=== PATIENT | female | born 1970 | race Caucasian/White ===

== ENCOUNTER 2017-01-24 08:45 | Emergency (ER) | payer OTHER ==
[2017-01-24 09:00] VITALS: BP 148/91
--- NOTE | 2017-01-24 09:22 | UC ---
Dental HPI - HPI Summary HPI Summary: The patient comes in today for: 1. Left facial pain: Onset: "a couple of days." Palliative/provocative: Nothing makes her pain better or worse. "Just sips of water just makes it worse." Quality: Throbbing, and a sharp ache. Region: Left face Severity: 9/10 Time: Constant. Associated symptoms: Fevers: None. Last dental visit: one year ago. She had an upper left tooth break about a month ago. She has not taken her methotrexate in 3-4 weeks. She has responded to keflex in the past. And she tolerates the medication well. * - History of Current Complaint Chief Complaint: UCDentalProblem Stated Complaint: DENTAL COMPLAINT Time Seen by Provider: 01/24/17 09:04 Hx Obtained From: Patient Hx Last Menstrual Period: current ?: No - Allergies/Home Medications Allergies/Adverse Reactions: Allergies Allergy/AdvReac Type Severity Reaction Status Date / Time Penicillins Allergy Mild Rash Verified 01/24/17 08:50 Sulfa Antibiotics Allergy Unknown Unknown Verified 01/24/17 08:50 Reaction Details Home Medications: Home Medications oxyCODONE TAB* [Roxycodone TAB 5 mg*] 10 mg PO Q4H PRN 01/24/17 [History Confirmed 01/24/17] PMH/Surg Hx/FS Hx/Imm Hx Previously Healthy: No - Lupus, lower back pain, arthralgia. Endocrine History Of: Reports: Thyroid Disease - HYPOTHYROID, Hypothyroidism Denies: Diabetes, Hyperthyroidism, Dyslipidemia Cardiovascular History Of: Denies: Cardiac Disorders, Hypertension, Pacemaker/ICD, Myocardial Infarction , Congestive Heart Failure, Atrial Fibrillation, Deep Vein Thrombosis, Bleeding Disorders Respiratory History Of: Reports: Asthma Denies: COPD, Bronchitis, Pneumonia, Pulmonary Embolism GI/ History Of: Reports: Gastroesophageal Reflux Denies: Ulcer, Gastrointestinal Bleed, Gall Bladder Disease, Kidney Stones, Diverticulitis, Renal Disease, Urosepsis Neurological History Of: Denies: TIA, CVA, Dementia, Seizures, Migraine Psychological History Of: Reports: Anxiety, Depression Denies: Bipolar Disorder, Schizophrenia, Post Traumatic Stress Disorder Cancer History Of: Denies: Lung Cancer, Colorectal Cancer, Breast Cancer, Prostate Cancer, Cervical Cancer Other History Of: Negative For: HIV, Hepatitis B, Hepatitis C, Anticoagulant Therapy - Surgical History Surgical History: None Surgery Procedure, Year, and Place: none - Family History Known Family History: Negative: Cardiac Disease, Hypertension - Social History Occupation: Unemployed Alcohol Use: None Substance Use Type: None Substance Use Comment - Amount & Last Used: oxycodone, fentanyl, alprazalam Smoking Status (MU): Light Every Day Tobacco Smoker Type: Cigarettes Amount Used/How Often: 1ppd Length of Time of Smoking/Using Tobacco: 20 years Have You Smoked in the Last Year: No When Did the Patient Quit Smoking/Using Tobacco: 2011 Household Exposure Type: Cigarettes Review of Systems Constitutional: Negative Skin: Negative Eyes: Negative ENT: Negative Respiratory: Negative Cardiovascular: Negative Gastrointestinal: Negative Genitourinary: Negative Musculoskeletal: Arthralgia, Myalgia All Other Systems Reviewed And Are Negative: Yes Physical Exam Triage Information Reviewed: Yes Appearance: Well-Nourished, Pain Distress - She is not crying, but she has decreased facial expression. Vital Signs: Initial Vital Signs Temp 98.2 F 01/24/17 08:53 Pulse 92 01/24/17 08:53 Resp 20 01/24/17 08:53 BP 148/91 01/24/17 08:53 Pulse Ox 93 01/24/17 08:53 Vital Signs Reviewed: Yes Eyes: Positive: Conjunctiva Clear. Negative: Discharge ENT: Positive: Hearing grossly normal, Other: - Palpation of her swollen cheek revealed no tenderness, but the left upper gum is tender.. Negative: Pharyngeal erythema, Nasal congestion, Nasal drainage, TM bulging, TM dull, TM red, Tonsillar swelling, Tonsillar exudate Dental: Positive: Percussion Tenderness @ - #12, #13 is missing. No pus coming out. Gums are not swollen, but very painful., Gross Decay/Caries @ Neck: Positive: Supple, Nontender, No Lymphadenopathy Respiratory: Positive: Chest non-tender, Lungs clear, No respiratory distress, No accessory muscle use. Negative: Rhonchi, Wheezing Cardiovascular: Positive: RRR, No Murmur Abdomen Description: Positive: Nontender, No Organomegaly, Soft. Negative: Distended, Guarding Musculoskeletal: Positive: Strength Intact, ROM Intact, No Edema Neurological: Positive: Alert, Muscle Tone Normal Psychological: Positive: Age Appropriate Behavior, Consolable Skin: Negative: rashes, breakdown Dental Complaint Course/Dx - Course Course Of Treatment: Patient was told of the diagnosis and treatment options. She wanted to go with cephalexin and ibuprofen. She tolerates the cephalexin which has worked well. And she has not been on methotrexate for at least 3 if not 4 weeks by her report. - Differential Dx/Diagnosis Differential Diagnosis/Dx: Dental Abscess, Dental Caries Provider Diagnoses: Hypertension Discharge - Discharge Plan Condition: Stable Disposition: HOME Patient Education Materials: Dental Caries (ED) Referrals: Pepito Kim MD [Primary Care Provider] - Additional Instructions: Use on of the oral surgeons listed below for an evaluation and treatment as soon as you can.
[2017-01-24] MEDS ORDERED: Ketorolac INJ* 60 MG/2 ML VIAL IM ONE (09:41)
== END 2017-01-24 10:02 | disposition home or self-care (01) ==
LOC: UCEAST 08:45
DX: Z88.3 Allergy status to other anti-infective agents (principal); E03.9 Hypothyroidism, unspecified; J45.909 Unspecified asthma, uncomplicated; F41.9 Anxiety disorder, unspecified; F32.9 Major depressive disorder, single episode, unspecified; K21.9 Gastro-esophageal reflux disease without esophagitis; F17.210 Nicotine dependence, cigarettes, uncomplicated; I10 Essential (primary) hypertension; K02.9 Dental caries, unspecified; Z88.0 Allergy status to penicillin
CPT/HCPCS: 96372; 99212; G0463; J1885

== ENCOUNTER 2017-09-21 09:43 | Emergency (ER) | payer OTHER | END 2017-09-21 11:10 | disposition left against medical advice (07) | LOC: UCEAST 09:43 | DX: K08.89 Other specified disorders of teeth and supporting structures (principal); Z53.21 Procedure and treatment not carried out due to patient leaving prior to being seen by health care provider ==

== ENCOUNTER 2017-09-21 13:03 | Emergency (ER) | payer OTHER ==
[2017-09-21 13:59] VITALS: BP 108/70
--- NOTE | 2017-09-21 16:02 | UC ---
Jose Alfredo Coto Gabriel, scribed for Santi Cortes MD on 09/21/17 at 1424 . Dental HPI - HPI Summary HPI Summary: This patient is a 46 year old F presenting to [facility] with a chief complaint of lower right sided dental pain since 3 days ago that has been getting worse. The patient rates the pain 5/10 in severity. Symptoms alleviated by Advil. Patient reports ear pain and swollen gums. She is going to see a dentist tomorrow and called today and they suggested she come to for antibiotics. - History of Current Complaint Chief Complaint: UCDentalProblem Stated Complaint: DENTAL COMPLAINT Time Seen by Provider: 09/21/17 14:11 Hx Obtained From: Patient Hx Last Menstrual Period: now Onset/Duration: Lasting Days - 3, Still Present Severity: Mild Pain Intensity: 3 Pain Scale Used: 0-10 Numeric Alleviating Factor(s): OTC Meds - Allergies/Home Medications Allergies/Adverse Reactions: Allergies Allergy/AdvReac Type Severity Reaction Status Date / Time Penicillins Allergy Mild Rash Verified 09/21/17 13:59 Sulfa Antibiotics Allergy Unknown Unknown Verified 09/21/17 13:59 Reaction Details Home Medications: Home Medications Buprenorphine HCl-Naloxone HCl [Suboxone 12-3 mg] 1 tab PO DAILY 09/21/17 [ History Confirmed 09/21/17] PMH/Surg Hx/FS Hx/Imm Hx Previously Healthy: No Endocrine History: Hypothyroidism Other Endocrine History: Lupus Other History Of: Negative For: HIV, Hepatitis B, Hepatitis C, Anticoagulant Therapy - Surgical History Surgical History: None Surgery Procedure, Year, and Place: none - Family History Known Family History: Negative: Cardiac Disease, Hypertension - Social History Alcohol Use: None Substance Use Type: Prescribed Substance Use Comment - Amount & Last Used: oxycodone, fentanyl, alprazalam Smoking Status (MU): Light Every Day Tobacco Smoker Type: Cigarettes Amount Used/How Often: 1ppd Length of Time of Smoking/Using Tobacco: 20 years Have You Smoked in the Last Year: No When Did the Patient Quit Smoking/Using Tobacco: 2011 Household Exposure Type: Cigarettes Review of Systems ENT: Dental Pain, Ear Ache, Other - swollen gums All Other Systems Reviewed And Are Negative: Yes Physical Exam Triage Information Reviewed: Yes Appearance: Well-Appearing, No Pain Distress Vital Signs: Initial Vital Signs Temp 97.7 F 09/21/17 13:56 Pulse 83 09/21/17 13:56 Resp 18 09/21/17 13:56 BP 108/70 09/21/17 13:56 Pulse Ox 99 09/21/17 13:56 Vital Signs Reviewed: Yes Eye Exam: Normal ENT Exam: Normal ENT: Positive: TMs normal Dental Exam: Other - Multiple carries, right lower gingival swelling Neck exam: Normal Neck: Positive: Supple, Nontender, No Lymphadenopathy Respiratory Exam: Normal - CTA Respiratory: Positive: Normal breath sounds Cardiovascular Exam: Normal Cardiovascular: Positive: RRR, No Murmur Abdominal Exam: Normal Abdomen Description: Positive: Nontender, Soft Bowel Sounds: Positive: Present Musculoskeletal Exam: Normal Musculoskeletal: Positive: Strength Intact, ROM Intact Neurological Exam: Normal - sensory/motor intact, A&O x3 Psychological Exam: Normal - affect/mood appropriate Skin Exam: Normal - warm, color reflects adequate perfusion, dry Dental Complaint Course/Dx - Differential Dx/Diagnosis Provider Diagnoses: DENTAL INFECTION/PAIN Discharge - Discharge Plan Condition: Stable Disposition: HOME Prescriptions: Acetaminophen TAB* [Tylenol TAB*] 650 mg PO Q4H PRN #20 tab PRN Reason: Pain Clindamycin Cap(NF) [Clindamycin Cap 300 mg Cap(NF)] 300 mg PO Q6H #40 cap Ibuprofen TAB* [Motrin TAB* 600 MG] 600 mg PO Q6H PRN #30 tab PRN Reason: Pain Magic Mouth Was-ALFA/MAAL/LIDO* 5 ml SWISH SPIT QID #60 ml Magic Mouth Was-ALFA/MAAL/LIDO* 5 ml SWISH SWAL QID #60 ml Patient Education Materials: Toothache (ED) Referrals: Tania Smith NP [Primary Care Provider] - Additional Instructions: FOLLOW UP WITH YOUR DENTIST. GET RECHECKED FOR ANY WORSENING OF YOUR CONDITION OR QUESTIONS OR CONCERNS. The documentation as recorded by the Jose Alfredo calero Gabriel accurately reflects the service I personally performed and the decisions made by , Santi Cortes MD.
[2017-09-21] MEDS ORDERED: Magic Mouth Was-BEN/MAAL/LIDO SWISH SPIT SCH (17:00)
== END 2017-09-21 14:46 | disposition home or self-care (01) ==
LOC: UCEAST 13:03
DX: K04.7 Periapical abscess without sinus (principal); F17.210 Nicotine dependence, cigarettes, uncomplicated; E03.9 Hypothyroidism, unspecified; Z88.0 Allergy status to penicillin; Z88.2 Allergy status to sulfonamides
CPT/HCPCS: 99212; G0463

== ENCOUNTER 2018-10-02 21:27 | Emergency (ER) | payer OTHER ==
[2018-10-02 21:33] VITALS: BP 138/77
[2018-10-02] MEDS ORDERED: Cephalexin CAP* 500 MG PO ONE (21:51)
--- NOTE | 2018-10-02 21:51 | UC ---
Throat Pain/Nasal Gerardo HPI - HPI Summary HPI Summary: History of lupus, taking MTX, with frequent URI's For the past 3 days, has had fever, sore throat and sore ears, but no cough. States had labs drawn about 6 weeks ago while living in [place] and is not aware of a decreased white count. Last [facility] record are 03/2018. Earlier this week, had diarrhea, but no vomiting or abdominal pain. - History of Current Complaint Chief Complaint: UCRespiratory Stated Complaint: SORE THROAT Time Seen by Provider: 10/02/18 21:42 Hx Obtained From: Patient Hx Last Menstrual Period: 1 MONTH AGO Onset/Duration: Gradual Onset, Lasting Days - 3 Pain Intensity: 4 Cough: None Associated Signs & Symptoms: Positive: Dysphagia, Hoarseness - Epiglottits Risk Factors Epiglottis Risk Factors: Negative - Allergies/Home Medications Allergies/Adverse Reactions: Allergies Allergy/AdvReac Type Severity Reaction Status Date / Time Sulfa (Sulfonamide Allergy Unknown Unknown Verified 10/02/18 21:34 Antibiotics) Reaction Details Penicillins Allergy Rash Verified 10/02/18 21:34 Home Medications: Home Medications DULoxetine DR CAP* [Cymbalta CAP*] 10/02/18 [History] Ibuprofen TAB* [Advil TAB*] 800 mg PO PRN 10/02/18 [History] Methotrexate TAB* 10/02/18 [History Confirmed 10/02/18] clonazePAM TAB(*) [Klonopin TAB(*)] PRN 10/02/18 [History Confirmed 10/02/18] PMH/Surg Hx/FS Hx/Imm Hx - Additional Past Medical History Additional PMH: Lupus and fibromyalgia Other History Of: Negative For: HIV, Hepatitis B, Hepatitis C, Anticoagulant Therapy - Surgical History Surgical History: None Surgery Procedure, Year, and Place: none - Family History Known Family History: Positive: None Negative: Cardiac Disease, Hypertension - Social History Occupation: Unemployed - seeking disability Alcohol Use: None Substance Use Type: None Substance Use Comment - Amount & Last Used: oxycodone, fentanyl, alprazalam Smoking Status (MU): Current Some Day Smoker Type: Cigarettes Amount Used/How Often: 1ppd Length of Time of Smoking/Using Tobacco: 20 years Have You Smoked in the Last Year: No When Did the Patient Quit Smoking/Using Tobacco: 2011 Household Exposure Type: Cigarettes Review of Systems All Other Systems Reviewed And Are Negative: Yes Constitutional: Positive: Fever, Fatigue Skin: Positive: Negative Eyes: Positive: Negative ENT: Positive: Sore Throat, Ear Ache Respiratory: Positive: Negative Cardiovascular: Positive: Negative Gastrointestinal: Positive: Negative Genitourinary: Positive: Negative Motor: Positive: Negative Neurovascular: Positive: Negative Musculoskeletal: Positive: Myalgia Neurological: Positive: Negative Psychological: Positive: Negative Is Patient Immunocompromised?: Yes Physical Exam Triage Information Reviewed: Yes Appearance: Ill-Appearing - looks mildly unwell, Pain Distress - mild Vital Signs: Initial Vital Signs Temp 98.3 F 10/02/18 21:29 Pulse 96 10/02/18 21:29 Resp 16 10/02/18 21:29 BP 138/77 10/02/18 21:29 Pulse Ox 98 10/02/18 21:29 ENT: Positive: TM dull - bilaterally, Tonsillar swelling, Tonsillar exudate - bilateral tonsillar swelling, erythema and exudate, almost to uvula Dental Exam: Normal Neck: Positive: Supple, Nontender, No Lymphadenopathy Respiratory: Positive: Lungs clear, Normal breath sounds. Negative: Stridor, Wheezing Cardiovascular: Positive: RRR, No Murmur Abdomen Description: Positive: Nontender, No Organomegaly, Soft Neurological Exam: Normal Neurological: Positive: Alert, Muscle Tone Normal Psychological Exam: Normal Throat Pain/Nasal Course/Dx - Course Course Of Treatment: cehalexin for exudative tonsillitis, with hx of methotrexate use. Labs obtained because of no recent available monitoring of mtx. - Differential Dx/Diagnosis Differential Diagnosis/HQI/PQRI: Laryngitis, Peritonsillar Abscess, Pharyngitis , Tonsillitis, URI Provider Diagnosis: Tonsillitis Discharge - Sign-Out/Discharge Documenting (check all that apply): Patient Departure All imaging exams completed and their final reports reviewed: No Studies - Discharge Plan Condition: Critical Disposition: HOME Prescriptions: Cephalexin CAP* [Keflex 500 CAP*] 500 mg PO TID #21 cap Patient Education Materials: Tonsillitis (ED) Referrals: Tania Smith NP [Primary Care Provider] - Additional Instructions: continue use of cephalexin for treatment of tonsillitis. Please contact Jaiolga Pizanok for instructions on use of methotrexate during treatment, and ensure that you have a follow up visit with her. You can use warm water and salt gargles to relieve tonsillar pain, in addition to ibuprofen 600mg every 6 hours as needed. - Billing Disposition and Condition Condition: CRITICAL Disposition: Home
[2018-10-03 13:44] LABS: ABS Basophils 0.1 10^3/ul (0-0.2); ABS Eosinophils 0.3 10^3/ul (0-0.6); ABS Lymphocytes 2.8 10^3/ul (1.0-4.8); ABS Monocytes 0.7 10^3/ul (0-0.8); ABS Neutrophils 10.4 10^3/ul (1.5-7.7); ABS Nucleated RBC 0 10^3/ul; Eosinophil % 1.8 %; Hematocrit 37 % (35-47); Hemoglobin 12.4 g/dl (12.0-16.0); Lymphocyte % 19.7 %; Mean Corpuscular HGB Conc 33 g/dl (31-36); Mean Corpuscular Hemoglobin 30 pg (27-31); Mean Corpuscular Volume 91 fL (80-97); Mean Platelet Volume 8.2 fL (7.4-10.4); Nucleated Red Blood Cells % 0; Platelet Count 277 10^3/ul (150-450); Red Cell Distribution Width 13 % (10.5-15); White Blood Count 14.3 10^3/ul (3.5-10.8)
--- NOTE | 2018-10-03 16:09 | UC ---
- Progress Note Progress Note: 10/03/2018 Pt Dx w/ Tonsillitis and Rx Keflex PO WBC:14.3 elevated, Neutrophils 10.4 elevated. K;3.3 mildly low, Glucose:126 elevated. However pt was not fasting BUN/crea: 21.8 elevated Please call back PT and see if she is feeling better w/ the antibiotic Please advised her she needs to f/u w/ her PCP as soon as possible if symptoms are not improving for further evaluation and treatment Prabha Arteaga PA-C Course/Dx - Diagnoses Provider Diagnoses: Tonsillitis Discharge - Sign-Out/Discharge Documenting (check all that apply): Patient Departure - D/C home All imaging exams completed and their final reports reviewed: No Studies - Discharge Plan Condition: Critical Disposition: HOME Prescriptions: Cephalexin CAP* [Keflex 500 CAP*] 500 mg PO TID #21 cap Patient Education Materials: Tonsillitis (ED) Referrals: Tania Smith NP [Primary Care Provider] - Additional Instructions: continue use of cephalexin for treatment of tonsillitis. Please contact Davey Samano for instructions on use of methotrexate during treatment, and ensure that you have a follow up visit with her. You can use warm water and salt gargles to relieve tonsillar pain, in addition to ibuprofen 600mg every 6 hours as needed. - Billing Disposition and Condition Condition: CRITICAL Disposition: Home
== END 2018-10-02 22:23 | disposition home or self-care (01) ==
LOC: UCEAST 21:27
DX: J03.90 Acute tonsillitis, unspecified (principal); M32.9 Systemic lupus erythematosus, unspecified; M79.7 Fibromyalgia; F17.210 Nicotine dependence, cigarettes, uncomplicated; Z88.0 Allergy status to penicillin; Z88.2 Allergy status to sulfonamides
CPT/HCPCS: 36415; 80053; 85025; 86140; 87651; 99212; A9270-GY; G0463

== ENCOUNTER 2018-10-17 13:33 | Emergency (ER) | payer OTHER ==
[2018-10-17 14:05] VITALS: BP 140/67
--- NOTE | 2018-10-17 14:16 | UC ---
Ear Complaint HPI - HPI Summary HPI Summary: 48-year-old female presents with 5 day history of right ear pain after recent visit to an indoor water park. States she felt like she got some water in the ear while in the wave [place]. She has noted increasing pain to the right ear with some diminished hearing. Denies fever, chills, ear drainage, nasal congestion, sore throat, or cough. - History of Current Complaint Chief Complaint: UCEar Stated Complaint: EAR COMPLAINT Time Seen by Provider: 10/17/18 14:11 Hx Obtained From: Patient Hx Last Menstrual Period: irregular period - a few months ago Pain Intensity: 5 - Allergies/Home Medications Allergies/Adverse Reactions: Allergies Allergy/AdvReac Type Severity Reaction Status Date / Time Penicillins Allergy Rash Verified 10/17/18 14:06 Sulfa (Sulfonamide AdvReac Unknown dizziness, Verified 10/17/18 14:06 Antibiotics) fainting cephalexin [From Keflex] AdvReac vomiting, Verified 10/17/18 14:06 diarrhea Home Medications: Home Medications Hydrochlorothiazide TAB* [Hydrodiuril TAB*] 25 - 50 mg PO DAILY 10/17/18 [ History Confirmed 10/17/18] PMH/Surg Hx/FS Hx/Imm Hx - Additional Past Medical History Additional PMH: SLE Endocrine History: Hypothyroidism Cardiovascular History: Hypertension GI/ History: Gastroesophageal Reflux Other History Of: Negative For: HIV, Hepatitis B, Hepatitis C, Anticoagulant Therapy - Surgical History Surgical History: None Surgery Procedure, Year, and Place: none - Family History Known Family History: Positive: None Negative: Cardiac Disease, Hypertension - Social History Occupation: Unemployed Lives: With Family Alcohol Use: Rare Substance Use Type: None Substance Use Comment - Amount & Last Used: oxycodone, fentanyl, alprazalam Smoking Status (MU): Former Smoker Type: Cigarettes Amount Used/How Often: 1ppd Length of Time of Smoking/Using Tobacco: 20 years Have You Smoked in the Last Year: No When Did the Patient Quit Smoking/Using Tobacco: 2011 Household Exposure Type: Cigarettes Review of Systems All Other Systems Reviewed And Are Negative: Yes Constitutional: Negative: Fever, Chills Skin: Negative: Rash Eyes: Negative: Drainage, Eye Redness ENT: Positive: Ear Ache. Negative: Sore Throat, Nasal Discharge, Sinus Congestion, Sinus Pain/Tenderness Respiratory: Negative: Cough Cardiovascular: Positive: Negative Gastrointestinal: Positive: Negative Genitourinary: Positive: Negative Is Patient Immunocompromised?: No Physical Exam - Summary Physical Exam Summary: GENERAL APPEARANCE: Well developed, obese, alert and cooperative, and appears to be in no acute distress. EYES: Conjunctiva clear. No drainage. Vision is grossly intact. EARS: Right external auditory canal erythematous and mildly edematous. Left external auditory canal gabe. Bilateral tympanic membranes clear, hearing grossly intact. NOSE: No nasal congestion or discharge. THROAT: Oral cavity and pharynx normal. No inflammation, swelling, exudate, or lesions. Teeth and gingiva in good general condition. NECK: Neck supple, non-tender without lymphadenopathy. CARDIAC: Normal S1 and S2. No S3, S4 or murmurs. Rhythm is regular. There is no peripheral edema, cyanosis or pallor. Extremities are warm and well perfused. Capillary refill is less than 2 seconds. LUNGS: Clear to auscultation and percussion without rales, rhonchi, wheezing or diminished breath sounds. ABDOMEN: Positive bowel sounds. Soft, nondistended, nontender. No guarding or rebound. No masses or hepatosplenomegally. MUSKULOSKELETAL: ROM intact to all extremities. No joint erythema or tenderness. Normal muscular development. Normal gait. SKIN: Skin normal color, texture and turgor with no lesions or eruptions. Triage Information Reviewed: Yes Vital Signs: Initial Vital Signs Temp 97.9 F 10/17/18 14:01 Pulse 88 10/17/18 14:01 Resp 18 10/17/18 14:01 BP 140/67 10/17/18 14:01 Pulse Ox 98 10/17/18 14:01 Vital Signs Reviewed: Yes Ear Complaint Course/Dx - Course Course Of Treatment: 48-year-old female presents with 5 day history of right ear pain after recent visit to an indoor water park. States she felt like she got some water in the ear while in the wave pool. She has noted increasing pain to the right ear with some diminished hearing. Denies fever, chills, ear drainage, nasal congestion, sore throat, or cough. Afebrile. Vital signs stable. Exam revealed erythema and mild edema of the right external auditory canal. Bilateral TMs were intact, opaque, with good cone of light. Will treat for a right otitis externa with ofloxacin otic 10 drops into the affected ear once daily for 7 days. She is to follow-up with her primary care provider in 5 days if symptoms do not improve. Warning symptoms were reviewed with the patient, she verbalizes understanding, and agrees with plan of care. - Differential Dx/Diagnosis Differential Diagnosis/HQI/PQRI: Cerumen Impaction, Otitis Externa, Otitis Media , Perforated TM, URI Provider Diagnosis: Right otitis externa Discharge - Sign-Out/Discharge Documenting (check all that apply): Patient Departure All imaging exams completed and their final reports reviewed: No Studies - Discharge Plan Condition: Stable Disposition: HOME Prescriptions: Ofloxacin 0.3% (Ear Drop)* [Floxin 0.3% OTIC.SADIE (Ear Drop)] 10 drop RIGHT EAR DAILY #1 btl Patient Education Materials: Otitis Externa (ED) Referrals: Tania Smith NP [Primary Care Provider] - 5 Days (If symptoms persist.) Additional Instructions: Start ofloxacin ear drops. Instill 10 drops into the affected ear once a day for 10 days. Follow up with your primary care provider in 5 days if no improvement in symptoms. Seek immediate medical attention in the emergency room if you develop fever greater than 100.5 F, have worsening pain, drainage or bleeding from the ear, or any worsening of symptoms. - Billing Disposition and Condition Condition: STABLE Disposition: Home
== END 2018-10-17 14:30 | disposition home or self-care (01) ==
LOC: UCEAST 13:33
DX: H60.91 Unspecified otitis externa, right ear (principal); I10 Essential (primary) hypertension; Z88.0 Allergy status to penicillin; Z88.1 Allergy status to other antibiotic agents; Z88.2 Allergy status to sulfonamides; Z79.899 Other long term (current) drug therapy; Z87.891 Personal history of nicotine dependence
CPT/HCPCS: 99212; G0463

== ENCOUNTER 2019-04-23 16:42 | Emergency (ER) | payer SELFPAY ==
--- NOTE | 2019-04-23 17:14 | ED ---
GI/ HPI - HPI Summary HPI Summary: This pt is a 48 y/o female presenting to [facility] via EMS from [facility] for right flank pain x3 days. Pt reports her pain has been worsening since then. She describes a constant and waxing and waning pain. Associated symptoms of nausea and decreased urine output despite drinking a lot of fluids. Denies vomiting, fever. Pt states there are no alleviating factors. Pt went to Urgent Care where she provided a urine sample that showed hematuria. PMHx includes kidney infections and kidney stones. - History of Current Complaint Chief Complaint: EDFlankPain Time Seen by Provider: 04/23/19 17:05 Stated Complaint: KIDNEY STONES PER EMS Hx Obtained From: Patient Hx Last Menstrual Period: 2.5 months ago Onset/Duration: Started Days Ago - 3, Atraumatic, Still Present Timing: Lasting Days - 3 Current Severity: Moderate Pain Intensity: 8 Location of Pain: Flank - right Associated Signs and Symptoms: Positive: Nausea, Hematuria, Flank Pain - right, Other: - POSITIVE: decreased urine output. Negative: Vomiting, Fever, Chills Aggravating Factor(s): Nothing Alleviating Factor(s): Nothing - Allergy/Home Medications Allergies/Adverse Reactions: Allergies Allergy/AdvReac Type Severity Reaction Status Date / Time Penicillins Allergy Rash Verified 04/23/19 16:59 Sulfa (Sulfonamide AdvReac Unknown dizziness, Verified 04/23/19 16:59 Antibiotics) fainting cephalexin [From Keflex] AdvReac vomiting, Verified 04/23/19 16:59 diarrhea PMH/Surg Hx/FS Hx/Imm Hx Endocrine/Hematology History: Reports: Hx Systemic Lupus Erythematosus, Hx Thyroid Disease - HYPOTHYROID Denies: Hx Anticoagulant Therapy, Hx Diabetes Cardiovascular History: Reports: Hx Hypertension Denies: Hx Congestive Heart Failure, Hx Deep Vein Thrombosis, Hx Myocardial Infarction, Hx Pacemaker/ICD Respiratory History: Reports: Hx Asthma Denies: Hx Chronic Obstructive Pulmonary Disease (COPD), Hx Lung Cancer, Hx Pneumonia, Hx Pulmonary Embolism GI History: Denies: Hx Gall Bladder Disease, Hx Gastrointestinal Bleed, Hx Ulcer, Hx Urosepsis History: Denies: Hx Kidney Stones, Hx Renal Disease Musculoskeletal History: Reports: Hx Arthritis, Hx Back Problems Denies: Hx Rheumatoid Arthritis - ?, CHECKING TO SEE Sensory History: Reports: Hx Contacts or Glasses Denies: Hx Hearing Aid Opthamlomology History: Reports: Hx Contacts or Glasses Neurological History: Reports: Other Neuro Impairments/Disorders - PAIN CLINIC PATIENT Denies: Hx Dementia, Hx Migraine, Hx Seizures, Hx Transient Ischemic Attacks (TIA) Psychiatric History: Reports: Hx Anxiety, Hx Depression Denies: Hx Panic Disorder, Hx Schizophrenia, Hx Bipolar Disorder - Surgical History Surgery Procedure, Year, and Place: none Infectious Disease History: No Infectious Disease History: Denies: Hx Clostridium Difficile, Hx Hepatitis, Hx Human Immunodeficiency Virus (HIV), Hx of Known/Suspected MRSA, Hx Shingles, Hx Tuberculosis, Hx Known/ Suspected VRE, Hx Known/Suspected VRSA, History Other Infectious Disease, Traveled Outside the [place] in Last 30 Days - Family History Known Family History: Negative: Cardiac Disease, Hypertension - Social History Alcohol Use: None Substance Use Type: Reports: None Substance Use Comment - Amount & Last Used: oxycodone, fentanyl, alprazalam Smoking Status (MU): Former Smoker Type: Cigarettes Amount Used/How Often: 1ppd Length of Time of Smoking/Using Tobacco: 20 years Have You Smoked in the Last Year: No Review of Systems Negative: Fever, Chills Positive: Nausea. Negative: Vomiting Genitourinary: Other - POSITIVE: decreased urine output Positive: flank pain - right, hematuria All Other Systems Reviewed And Are Negative: Yes Physical Exam - Summary Physical Exam Summary: Appearance: The patient is well-nourished in no acute distress and in no acute pain. Skin: The skin is warm and dry and skin color reflects adequate perfusion. HEENT: The head is normocephalic and atraumatic. The pupils are equal and reactive. The conjunctivae are clear and without drainage. Nares are patent and without drainage. Mouth reveals moist mucous membranes and the throat is without erythema and exudate. The external ears are intact. The ear canals are patent and without drainage. The tympanic membranes are intact. Neck: the neck is supple with full range of motion and non-tender. There are no carotid bruits. There is no neck vein distension. Respiratory: Chest is non-tender. Lungs are clear to auscultation and breath sounds are symmetrical and equal. Cardiovascular: Heart is regular rate and rhythm. There is no murmur or rub auscultated. There is no peripheral edema and pulses are symmetrical and equal. Abdomen: The abdomen is soft and non-tender. There are normal bowel sounds heard in all four quadrants and there is no organomegaly palpated. Musculoskeletal: There is no back tenderness noted. Extremities are non-tender with full range of motion. There is good capillary refill. There is no peripheral edema or calf tenderness elicited. Neurological: Patient is alert and oriented to person, place and time. The patient has symmetrical motor strength in all four extremities. Psychiatric: The patient has an appropriate affect and does not exhibit any anxiety or depression. Triage Information Reviewed: Yes Vital Signs On Initial Exam: Initial Vitals Temp Pulse Resp BP Pulse Ox 98.6 F 64 18 124/96 96 04/23/19 16:45 04/23/19 16:45 04/23/19 16:45 04/23/19 16:45 04/23/19 16:45 Vital Signs Reviewed: Yes Diagnostics - Vital Signs Vital Signs Temp Pulse Resp BP Pulse Ox 04/23/19 16:45 98.6 F 64 18 124/96 96 - Laboratory Result Diagrams: 04/23/19 17:30 04/23/19 17:30 Lab Statement: Any lab studies that have been ordered have been reviewed, and results considered in the medical decision making process. - CT CT Abdomen/Pelvis CT Interpretation Completed By: Radiologist Summary of CT Findings: IMPRESSION: 1. No renal calculi or other CT apparent acute abnormalities that would account for the patient's current clinical presentation. 2. Chronic and degenerative changes noted in the body the report. Dr. Last has reviewed this report. GIGU Course/Dx - Course Course Of Treatment: Ms. Christensen presented with right flank pain and dysuria for about 3 days. She has a history of frequent UTIs as well as kidney stones. She was nontoxic in appearance with stable vitals and her exam was unremarkable. Labs were okay including a urinalysis which was unremarkable. CT abdomen and pelvis revealed no sign of ureterolithiasis. I'm not sure the etiology of her pain but she was improved at discharge and I recommended close follow-up. - Diagnoses Provider Diagnoses: Flank pain Discharge - Sign-Out/Discharge Documenting (check all that apply): Patient Departure - Discharge home Patient Received Moderate/Deep Sedation with Procedure: No - Discharge Plan Condition: Stable Disposition: HOME Patient Education Materials: Flank Pain (ED) Referrals: Tania Smith NP [Primary Care Provider] - Additional Instructions: Follow up with your primary care provider in 2-3 days. RETURN TO THE ED FOR ANY WORSENING OR NEW SYMPTOMS. - Billing Disposition and Condition Condition: STABLE Disposition: Home - Attestation Statements Document Initiated by Kang: Yes Documenting Scribe: Liv Benjamin Provider For Whom Kang is Documenting (Include Credential): Leoncio Last MD Scribe Attestation: Liv Coto, scribed for Leoncio Last MD on 04/24/19 at 1322. Scribe Documentation Reviewed: Yes Provider Attestation: The documentation as recorded by the Liv calero accurately reflects the service I personally performed and the decisions made by me, Leoncio Last MD Status of Scribe Document: Viewed
[2019-04-23 17:38] LABS: ABS Basophils 0.1 10^3/ul (0-0.2); ABS Eosinophils 0.2 10^3/ul (0-0.6); ABS Monocytes 0.5 10^3/ul (0-0.8); ABS Neutrophils 5.6 10^3/ul (1.5-7.7); Hematocrit 41 % (35-47); Lymphocyte % 31.7 %; Mean Corpuscular HGB Conc 34 g/dL (31-36); Mean Corpuscular Hemoglobin 30 pg (27-31); Mean Corpuscular Volume 87 fL (80-97); Mean Platelet Volume 8.6 fL (7.4-10.4); Platelet Count 242 10^3/uL (150-450); Red Blood Count 4.71 10^6 /uL (3.70-4.87); Red Cell Distribution Width 13 % (10-15); White Blood Count 9.4 10^3/uL (3.5-10.8)
[2019-04-23] MEDS ORDERED: Ondansetron INJ* 2 MG/ML VIAL IV ONE (17:52)
[2019-04-23] MEDS ORDERED: Ketorolac INJ* 30 MG/ML 1 ML VIAL IV PUSH ONE (17:52)
[2019-04-23] MEDS ORDERED: HYDROmorphone INJ1* 1 MG/ML SYRINGE IV SLOW PU ONE (17:52)
[2019-04-23] MEDS ORDERED: NS 0.9% 1000 ML** 1,000 ML IV ONE (17:52)
[2019-04-23 17:55] LABS: ALT 12 U/L (7-52); AST 16 U/L (13-39); Albumin 4.1 g/dL (3.2-5.2); Albumin/Globulin Ratio 1.2 (1-3); Alkaline Phosphatase 84 U/L (34-104); Anion Gap 6 mmol/L (2-11); Blood Urea Nitrogen 15 mg/dL (6-24); C Reactive Protein 10.43 mg/L (<8.01); CO2 Carbon Dioxide 29 mmol/L (22-32); Calcium 9.2 mg/dL (8.6-10.3); Chloride 102 mmol/L (101-111); EGFR African American 100.7 (>60); EGFR Non-African American 83.2 (>60); Globulin 3.3 g/dL (2-4); Glucose 86 mg/dL (70-100); Potassium 4.2 mmol/L (3.5-5.0); Sodium 137 mmol/L (135-145); Total Protein 7.4 g/dL (6.4-8.9)
[2019-04-23 18:01] LABS: HCG Pregnancy 2.43 mIU/mL
[2019-04-23 19:17] LABS: Urine Appearance Cloudy; Urine Bacteria Absent (Absent); Urine Bilirubin Negative (Negative); Urine Blood 1+ (Negative); Urine Color Yellow; Urine Glucose Negative (Negative); Urine Ketones Negative (Negative); Urine Nitrite Negative (Negative); Urine Protein Negative (Negative); Urine Red Blood Cell Trace(0-2/hpf) (Absent); Urine Specific Gravity 1.013 (1.010-1.030); Urine Squamous Epithelial Cell Present (Absent); Urine Urobilinogen Negative (Negative); Urine White Blood Cell Trace(0-5/hpf) (Absent)
[2019-04-23 19:34] VITALS: BP 142/92
== END 2019-04-23 20:08 | disposition home or self-care (01) ==
LOC: ED 16:42
DX: R10.31 Right lower quadrant pain (principal); Z88.1 Allergy status to other antibiotic agents; Z88.0 Allergy status to penicillin; Z88.2 Allergy status to sulfonamides; I10 Essential (primary) hypertension; M32.9 Systemic lupus erythematosus, unspecified; E03.9 Hypothyroidism, unspecified; Z87.891 Personal history of nicotine dependence
CPT/HCPCS: 36415; 74176; 80053; 81003; 81015; 83605; 83690; 84702; 85025; 86140; 87086; 96361; 96374; 96375; 99282; J1170; J1885; J2405

== ENCOUNTER 2019-12-12 20:48 | Emergency (ER) | payer OTHER ==
[2019-12-12 21:05] VITALS: BP 119/65
[2019-12-12 21:18] LABS: Influenza A Molecular POSITIVE (Negative)
[2019-12-12] MEDS ORDERED: DOXYcycline CAP(*) 100 MG PO ONE (21:23)
[2019-12-12] MEDS ORDERED: Oseltamivir CAP* 75 MG CAP PO ONE (21:23)
--- NOTE | 2019-12-12 21:25 | UC ---
FLU HPI - HPI Summary HPI Summary: 49-year-old woman comes in with a chief complaint of influenza-like symptoms. Patient's been sick for about 2 weeks. 2 weeks ago she had influenza-like symptoms. She started to get better however, about 3 days ago started feeling very sick again with fevers chills and body aches sore throat cough chest congestion. Throat hurts worse on the left. - History of Current Complaint Chief Complaint: UCGeneralIllness Stated Complaint: SORE THROAT Time Seen by Provider: 12/12/19 20:50 Hx Last Menstrual Period: 2.5 months ago Pain Intensity: 0 - Allergy/Home Medications Allergies/Adverse Reactions: Allergies Allergy/AdvReac Type Severity Reaction Status Date / Time Penicillins Allergy Rash Verified 12/12/19 20:55 Sulfa (Sulfonamide AdvReac Unknown dizziness, Verified 12/12/19 20:55 Antibiotics) fainting cephalexin [From Keflex] AdvReac vomiting, Verified 12/12/19 20:55 diarrhea Home Medications: Home Medications Folic Acid TAB* [Folvite TAB*] 1 mg PO DAILY 10/06/13 [History Confirmed ] Plaquenil TAB* 200 mg PO BID 04/03/14 [History Confirmed 12/12/19] Levothyroxine Sodium [Levothyroxine] 100 mcg PO 0800 07/06/14 [History Confirmed 12/12/19] Gabapentin CAP(*) [Neurontin 300 CAP(*)] 300 mg PO TID 01/23/15 [History Confirmed 12/12/19] Albuterol HFA INHALER* [Ventolin HFA Inhaler*] 1 - 2 puff INH Q6H PRN #1 mdi [Rx Confirmed 12/12/19] Buprenorphine HCl/Naloxone HCl [Suboxone 12-3 mg] 1 tab PO DAILY 09/21/17 [ History Confirmed 12/12/19] DULoxetine DR CAP* [Cymbalta CAP*] 20 mg PO DAILY 10/02/18 [History Confirmed ] clonazePAM TAB(*) [Klonopin TAB(*)] 1 mg PO TID 10/02/18 [History Confirmed ] Hydrochlorothiazide TAB* [Hydrodiuril TAB*] 25 - 50 mg PO DAILY 12/30/18 [ History Confirmed 12/12/19] DOXYcycline CAP(*) [DOXYcycline 100MG CAP(*)] 100 mg PO BID #19 cap 12/12/19 [Rx ] Oseltamivir CAP* [Tamiflu CAP*] 75 mg PO BID #9 cap 12/12/19 [Rx] PMH/Surg Hx/FS Hx/Imm Hx Previously Healthy: Yes - lupus, on Plaquenil Endocrine History: Hypothyroidism Respiratory History: Asthma Other History Of: Negative For: HIV, Hepatitis B, Hepatitis C, Anticoagulant Therapy - Surgical History Surgical History: None Surgery Procedure, Year, and Place: none - Family History Known Family History: Positive: None Negative: Cardiac Disease, Hypertension - Social History Alcohol Use: None Substance Use Type: None Substance Use Comment - Amount & Last Used: oxycodone, fentanyl, alprazalam Smoking Status (MU): Former Smoker Type: Cigarettes Amount Used/How Often: 1ppd Length of Time of Smoking/Using Tobacco: 20 years Have You Smoked in the Last Year: No When Did the Patient Quit Smoking/Using Tobacco: 2011 Household Exposure Type: Cigarettes Review of Systems All Other Systems Reviewed And Are Negative: Yes Constitutional: Positive: Fever, Other - see hpi Skin: Positive: Negative Eyes: Positive: Negative ENT: Positive: Sore Throat, Nasal Discharge Respiratory: Positive: Cough Cardiovascular: Positive: Negative Gastrointestinal: Positive: Negative Motor: Positive: Negative Neurovascular: Positive: Negative Musculoskeletal: Positive: Myalgia Neurological/Mental Status: Positive: Headache Psychological: Positive: Negative Is Patient Immunocompromised?: No Physical Exam Triage Information Reviewed: Yes Appearance: No Pain Distress, Well-Nourished, Ill-Appearing - mild Vital Signs: Initial Vital Signs Temp 99.1 F 12/12/19 20:58 Pulse 84 12/12/19 20:58 Resp 20 12/12/19 20:58 BP 119/65 12/12/19 20:58 Pulse Ox 98 12/12/19 20:58 Vital Signs Reviewed: Yes Eye Exam: Normal Eyes: Positive: Conjunctiva Clear ENT: Positive: Pharyngeal erythema, Nasal congestion, Nasal drainage, Tonsillar swelling - left, Uvula midline - Oropharynx is open left tonsil is larger than the right tonsil. There is erythema. Voice is normal. Neck: Positive: Supple Respiratory: Positive: Lungs clear, Normal breath sounds, No respiratory distress Cardiovascular: Positive: RRR Musculoskeletal: Positive: Strength Intact, ROM Intact Neurological: Positive: Alert, Muscle Tone Normal Psychological: Positive: Age Appropriate Behavior Skin Exam: Normal Flu Course/Dx - Course Course Of Treatment: Because the patient's been having symptoms for 2 weeks and her left tonsil is larger than the right we will treat with antibiotics. She is positive for influenza A. It's unsure when she contracted influenza A. Discussed Tamiflu and its efficacy. Patient prefers to be an Tamiflu at this time. Patient will get reevaluated if not improving or worse. - Differential Dx/Diagnosis Provider Diagnosis: Influenza, Tonsillitis Discharge ED - Sign-Out/Discharge Documenting (check all that apply): Patient Departure All imaging exams completed and their final reports reviewed: No Studies - Discharge Plan Condition: Stable Disposition: HOME Prescriptions: DOXYcycline CAP(*) [DOXYcycline 100MG CAP(*)] 100 mg PO BID #19 cap Oseltamivir CAP* [Tamiflu CAP*] 75 mg PO BID #9 cap Patient Education Materials: Influenza (ED), Tonsillitis (ED) Referrals: Xochilt Mendieta MD [Primary Care Provider] - Additional Instructions: FOLLOW UP WITH YOUR DOCTOR IF NOT COMPLETELY IMPROVED. GET REEVALUATED SOONER IF NOT IMPROVED OR WORSE OR ANY QUESTIONS OR CONCERNS. - Billing Disposition and Condition Condition: STABLE Disposition: Home
[2019-12-12] MEDS ORDERED: Benzonatate CAP* 100 MG PO ONE (21:32)
== END 2019-12-12 21:42 | disposition home or self-care (01) ==
LOC: UCEAST 20:48
DX: J11.1 Influenza due to unidentified influenza virus with other respiratory manifestations (principal); J03.90 Acute tonsillitis, unspecified; M32.9 Systemic lupus erythematosus, unspecified; E03.9 Hypothyroidism, unspecified; J45.909 Unspecified asthma, uncomplicated; Z88.0 Allergy status to penicillin; Z88.2 Allergy status to sulfonamides; Z88.1 Allergy status to other antibiotic agents; Z79.890 Hormone replacement therapy; Z79.899 Other long term (current) drug therapy; Z87.891 Personal history of nicotine dependence
CPT/HCPCS: 87651; 99212; A9270-GY; G0463